=== PATIENT | female | born 1995 | race Hispanic/Latino ===

== ENCOUNTER 2021-10-15 08:58 | Outpatient (CLI) | payer BC, OTHER | END 2021-10-15 08:59 | disposition home or self-care (01) | LOC: CSHLAB 08:58 | PROVIDERS: ATTEND Obstetrics & Gynecology | DX: Z20.822 Contact with and (suspected) exposure to COVID-19 (principal) | CPT/HCPCS: 87811 ==

== ENCOUNTER 2021-10-19 05:30 | Inpatient (IN) | payer BC, OTHER ==
[2021-10-19 05:56] VITALS: BMI 32.5
[2021-10-19] MEDS ORDERED: hydrALAZINE 20 MG/ML VIAL SLOW IVP PRN ×2 (06:32→20:14)
[2021-10-19] MEDS ORDERED: Ondansetron PF 4 MG/2 ML Vial IVP PRN ×2 (06:32→20:14)
[2021-10-19] MEDS ORDERED: Misoprostol 200 MCG TAB PR PRN (06:32)
[2021-10-19] MEDS ORDERED: Butorphanol Tartrate 1 MG/ML VIAL SLOW IVP PRN (06:32)
[2021-10-19] MEDS ORDERED: Promethazine HCl 25 MG/ML VIAL IM PRN ×2 (06:32→20:14)
[2021-10-19] MEDS ORDERED: Carboprost 250 MCG/ML AMP IM PRN (06:32)
[2021-10-19] MEDS ORDERED: Methylergonovine 0.2 MG/ML VIAL IM PRN ×2 (06:32→20:14)
[2021-10-19] MEDS ORDERED: Lidocaine 1% (PF) 30 ML VIAL SC PRN (06:32)
[2021-10-19] MEDS ORDERED: HYDROcodone/Acetaminophen 5/325 mg Tablet PO PRN (06:32)
[2021-10-19] MEDS ORDERED: Ibuprofen 800 MG TAB PO PRN (06:32)
[2021-10-19] MEDS ORDERED: Diphenoxylate HCl/Atropine Tablet PO PRN ×2 (06:32)
[2021-10-19] MEDS ORDERED: Acetaminophen 500 MG TAB PO PRN (06:32)
[2021-10-19] MEDS ORDERED: NS w/ Oxytocin 30 units 500 ML IV SCH ×3 (06:45→20:14)
[2021-10-19] MEDS ORDERED: Penicillin G Potassium 5 MILL.UNITS in Sodium Chloride 0.9% 100 ML IVPB SCH (06:45)
[2021-10-19 06:56] LABS: Hemoglobin 11.2 g/dL (12.0-15.5); Mean Corpuscular HGB CONC 33.2 g/dL (32.0-36.0); Mean Corpuscular Hemoglobin 27.8 pg (27.0-33.0); Mean Corpuscular Volume 83.6 fl (81.6-98.3); Mean Platelet Volume 11.3 fl (7.4-10.4); Platelet Count 174 10x3/uL (150-450); RBC Distribution Width 15.1 % (11.5-14.5); Red Blood Cell (RBC) Count 4.03 10x6/uL (3.90-5.03); White Blood Cell (WBC) Count 6.6 10x3/uL (3.5-10.5)
[2021-10-19] MEDS: Lactated Ringer's 1,000 ML IV SCH ×2 (07:03→18:26)
[2021-10-19 07:49] LABS: Hep B Surf Ag Non-Reactive S/CO (NonReactive); Syphilis Antibody Nonreactive (Nonreactive); Syphilis Antibody Index 0.04 S/CO (<1.00 Non-Reactive)
[2021-10-19 08:16] LABS: HBSAg Index 0.26 S/CO (0-0.99)
[2021-10-19] MEDS: Penicillin G 2.5 MILL.units 2.5 MILL.UNITS in Premix Bag 1 BAG IVPB SCH ×4 (11:12→21:48)
[2021-10-19] MEDS ORDERED: Milk Of Magnesia 30 ML UDCUP PO PRN (20:14)
[2021-10-19] MEDS ORDERED: Measles/Mumps/Rubella 10 MCG/0.5 ML VIAL SC ONE (20:14)
[2021-10-19] MEDS ORDERED: Preparation H Ointment 28 GM TUBE PR PRN (20:14)
[2021-10-19] MEDS ORDERED: Zolpidem Tartrate 5 MG TAB PO PRN (20:14)
[2021-10-19] MEDS ORDERED: Bisacodyl 10 MG SUPP PR PRN (20:14)
[2021-10-19] MEDS ORDERED: Misoprostol 200 MCG TAB VAG PRN (20:14)
[2021-10-19] MEDS ORDERED: Varicella virus, LIVE 0.5 ML VIAL SC ONE (20:14)
[2021-10-19] MEDS ORDERED: diphenhydrAMINE 25 MG CAP PO PRN (20:14)
[2021-10-19] MEDS ORDERED: Lanolin Ointment 7 GM TUBE TOP PRN (20:14)
[2021-10-19] MEDS ORDERED: Benzocaine-Menthol 82.5 ML CAN TOP PRN (20:14)
[2021-10-19] MEDS ORDERED: Boostrix 0.5 ML (Tdap) VIAL IM ONE (20:14)
[2021-10-19] MEDS: Ibuprofen 800 MG TAB PO SCH (20:50)
[2021-10-19] MEDS: Docusate 100 MG CAP PO SCH (20:50)
[2021-10-19] MEDS: HYDROcodone/Acetaminophen 5/325 mg Tablet PO PRN (21:52)
[2021-10-20 04:27] LABS: Hemoglobin 9.6 g/dL (12.0-15.5); Mean Corpuscular Hemoglobin 27.8 pg (27.0-33.0); Mean Corpuscular Volume 81.7 fl (81.6-98.3); Platelet Count 148 10x3/uL (150-450); RBC Distribution Width 14.6 % (11.5-14.5); Red Blood Cell (RBC) Count 3.45 10x6/uL (3.90-5.03); White Blood Cell (WBC) Count 9.8 10x3/uL (3.5-10.5)
[2021-10-20] MEDS: Ibuprofen 800 MG TAB PO SCH ×3 (05:08→21:14)
[2021-10-20] MEDS: Ferrous Sulfate 325 MG TAB PO SCH ×2 (09:07→15:31)
[2021-10-20] MEDS: Prenatal Vitamin 1 TAB PO SCH (09:07)
[2021-10-20] MEDS: Docusate 100 MG CAP PO SCH ×2 (09:07→21:14)
[2021-10-20] MEDS: HYDROcodone/Acetaminophen 5/325 mg Tablet PO PRN ×2 (09:10→15:31)
[2021-10-21] MEDS: Ibuprofen 800 MG TAB PO SCH (05:23)
[2021-10-21 07:53] VITALS: TEMP 98
[2021-10-21] MEDS: Ferrous Sulfate 325 MG TAB PO SCH (09:28)
[2021-10-21] MEDS: Docusate 100 MG CAP PO SCH (09:28)
[2021-10-21] MEDS: Prenatal Vitamin 1 TAB PO SCH (09:28)
[2021-10-21 11:41] VITALS: BP 113/64
== END 2021-10-21 13:05 | disposition home or self-care (01) | DRG 807 ==
LOC: CSHLD 05:35 → CSHPP 18:20
PROVIDERS: ADMIT Obstetrics & Gynecology; ATTEND Obstetrics & Gynecology
PROC: 10E0XZZ Delivery of Products of Conception, External Approach (ICD-10-PCS; principal; 2021-10-19)
DX: O70.0 First degree perineal laceration during delivery (principal); Z37.0 Single live birth; Z3A.39 39 weeks gestation of pregnancy
CPT/HCPCS: 36415; 85027; 86780; 86850; 86900; 86901; 87340; J2001; J2540; J2590; J3490; J7120

== ENCOUNTER 2023-03-09 14:39 | Day surgery (SDC) | payer BC, OTHER ==
[2023-03-09 15:08] VITALS: BMI 29.8
[2023-03-09] MEDS ORDERED: hydrALAZINE 20 MG/ML VIAL SLOW IVP PRN (15:14)
[2023-03-09 15:58] LABS: Fetal Membranes Rupture No Membranes Rupture (No Rupture)
[2023-03-09 16:37] LABS: Amphetamine Not Detected (NotDetected); Barbiturates Screen Not Detected (NotDetected); Benzodiazepine Screen Not Detected (NotDetected); Cocaine Metabolite Screen Not Detected (NotDetected); Methadone Not Detected (NotDetected); Methamphetamine Not Detected (NotDetected); Opiate Screen Not Detected (NotDetected); Oxycodone Screen Not Detected (NotDetected); Phencyclidine (PCP) Not Detected (NotDetected); THC/Cannabinoid Screen Not Detected (NotDetected); Tricyclic Screen Not Detected (NotDetected)
== END 2023-03-09 16:50 | disposition home or self-care (01) ==
LOC: CSHLD/OP 14:39
PROVIDERS: ATTEND Obstetrics & Gynecology
DX: O47.1 False labor at or after 37 completed weeks of gestation (principal); O98.513 Other viral diseases complicating pregnancy, third trimester; B00.9 Herpesviral infection, unspecified; Z3A.38 38 weeks gestation of pregnancy; Z79.899 Other long term (current) drug therapy
CPT/HCPCS: 80306; 84112

== ENCOUNTER 2023-03-19 19:47 | Inpatient (IN) | payer BC, MEDICAID ==
[2023-03-19 20:21] VITALS: BMI 31.5
[2023-03-19] MEDS ORDERED: Carboprost 250 MCG/ML AMP IM PRN (22:11)
[2023-03-19] MEDS ORDERED: Ondansetron PF 4 MG/2 ML Vial IVP PRN (22:11)
[2023-03-19] MEDS ORDERED: hydrALAZINE 20 MG/ML VIAL SLOW IVP PRN ×2 (22:11)
[2023-03-19] MEDS ORDERED: Misoprostol 200 MCG TAB PR PRN (22:11)
[2023-03-19] MEDS ORDERED: Diphenoxylate HCl/Atropine Tablet PO PRN (22:11)
[2023-03-19] MEDS ORDERED: Methylergonovine 0.2 MG/ML VIAL IM PRN (22:11)
[2023-03-19] MEDS ORDERED: Tranexamic Acid 1,000 MG/10 ML VIAL IVP PRN (22:11)
[2023-03-19] MEDS ORDERED: Acetaminophen 500 MG TAB PO PRN (22:11)
[2023-03-19] MEDS ORDERED: fentaNYL 50 mcg/mL 1 mL Vial SLOW IVP PRN (22:11)
[2023-03-19] MEDS ORDERED: Promethazine HCl 25 MG/ML VIAL IM PRN (22:11)
[2023-03-19] MEDS ORDERED: Oxytocin 30 units/NS 500 ML 500 ML IV SCH ×2 (22:15→22:45)
[2023-03-19] MEDS ORDERED: Lidocaine 1% (PF) 30 ML VIAL SC PRN (22:34)
[2023-03-19] MEDS ORDERED: Ibuprofen 800 MG TAB PO PRN (22:34)
[2023-03-19] MEDS ORDERED: Penicillin G Potassium 5 MILL.UNITS VIAL ONE (22:35)
[2023-03-19] MEDS ORDERED: Penicillin G Potassium 5 MILL.UNITS in Sodium Chloride 0.9% 100 ML IVPB SCH (22:45)
[2023-03-19 22:52] LABS: Hematocrit 36.4 % (34.9-44.5); Hemoglobin 11.8 g/dL (12.0-15.5); Mean Corpuscular HGB CONC 32.4 g/dL (32.0-36.0); Mean Corpuscular Hemoglobin 27.1 pg (27.0-33.0); Mean Corpuscular Volume 83.7 fl (81.6-98.3); Mean Platelet Volume 11.5 fl (7.4-10.4); Platelet Count 223 10x3/uL (150-450); RBC Distribution Width 13.3 % (11.5-14.5); Red Blood Cell (RBC) Count 4.35 10x6/uL (3.90-5.03); White Blood Cell (WBC) Count 10.2 10x3/uL (3.5-10.5)
[2023-03-19] MEDS ORDERED: Lactated Ringer's 1,000 ML IV SCH (23:00)
[2023-03-19 23:10] LABS: ALT (SGPT) 12 U/L (8-55); AST (SGOT) 23 U/L (5-34); Albumin 3.6 g/dL (3.5-5.0); Alkaline Phosphatase 187 U/L (40-110); Anion Gap 17 mmol/L (10-20); BUN (Urea Nitrogen) 5 mg/dL (7.0-18.7); Bilirubin, Total 0.4 mg/dL (0.2-1.2); Calc. Creatinine Clearance 160 mL/min (70-130); Calcium 9.3 mg/dL (7.8-10.44); Carbon Dioxide 19 mmol/L (22-29); Chloride 103 mmol/L (98-107); Estimated GFR 125; Globulin 4.3 g/dL (2.4-3.5); Glucose 76 mg/dL (70-105); Potassium 4.1 mmol/L (3.5-5.1); Protein, Total 7.9 g/dL (6.0-8.3); Sodium 135 mmol/L (136-145)
[2023-03-19 23:11] LABS: Amphetamine Not Detected (NotDetected); Barbiturates Screen Not Detected (NotDetected); Benzodiazepine Screen Not Detected (NotDetected); Cocaine Metabolite Screen Not Detected (NotDetected); Methadone Not Detected (NotDetected); Methamphetamine Not Detected (NotDetected); Opiate Screen Not Detected (NotDetected); Oxycodone Screen Not Detected (NotDetected); Phencyclidine (PCP) Not Detected (NotDetected); THC/Cannabinoid Screen Not Detected (NotDetected); Tricyclic Screen Not Detected (NotDetected)
[2023-03-19 23:25] LABS: HBSAg Index 0.27 S/CO (0-0.99); Hep B Surf Ag - L&D Non-Reactive S/CO (NonReactive)
[2023-03-19 23:27] LABS: Syphilis Antibody Nonreactive (Nonreactive); Syphilis Antibody Index 0.08 S/CO (<1.00 Non-Reactive)
[2023-03-19 23:28] LABS: HIV (1/2) Antibody/Antigen Non-Reactive (NonReactive)
[2023-03-20] MEDS ORDERED: Carboprost 250 MCG/ML AMP ONE (00:12)
[2023-03-20] MEDS ORDERED: Methylergonovine 0.2 MG/ML VIAL ONE (00:12)
[2023-03-20] MEDS ORDERED: Misoprostol 200 MCG TAB ONE (00:13)
[2023-03-20] MEDS ORDERED: Oxytocin 30 units/NS 500 ML 500 ML ONE (00:16)
[2023-03-20] MEDS ORDERED: Lidocaine 1% PF 10 ML AMP ONE (00:18)
[2023-03-20] MEDS ORDERED: Lidocaine 1% (PF) 30 ML VIAL ONE (00:20)
[2023-03-20] MEDS ORDERED: Bisacodyl 10 MG SUPP PR PRN (00:43)
[2023-03-20] MEDS ORDERED: Boostrix 0.5 ML (Tdap) VIAL (>/=7 yrs of age) IM ONE (00:43)
[2023-03-20] MEDS ORDERED: Milk Of Magnesia 30 ML UDCUP PO PRN (00:43)
[2023-03-20] MEDS ORDERED: Penicillin G 2.5 MILL.units 2.5 MILL.UNITS in Premix 1 BAG IVPB SCH (03:00)
[2023-03-20] MEDS: Acetaminophen 325 MG TAB PO SCH ×4 (03:02→20:07)
[2023-03-20] MEDS ORDERED: HYDROcodone/Acetaminophen 5/325 mg Tablet PO SCH (04:30)
[2023-03-20] MEDS: Ibuprofen 800 MG TAB PO SCH ×2 (08:31→16:28)
[2023-03-20] MEDS: Docusate 100 MG CAP PO SCH ×2 (08:32→20:07)
[2023-03-20] MEDS ORDERED: Benzocaine-Menthol 82.5 ML CAN TOP PRN (08:56)
[2023-03-20 12:55] LABS: Hep C IgG Ab Non-Reactive S/CO (NonReactive); Hep C Index 0.14 S/CO (0-0.79)
[2023-03-21] MEDS: Ibuprofen 800 MG TAB PO SCH ×2 (01:00→13:10)
[2023-03-21] MEDS: Acetaminophen 325 MG TAB PO SCH ×2 (01:01→13:10)
[2023-03-21 12:06] VITALS: BP 125/65; TEMP 98
[2023-03-21] MEDS: Docusate 100 MG CAP PO SCH (13:10)
== END 2023-03-21 12:50 | disposition home or self-care (01) | DRG 807 ==
LOC: CSHLD/OP 19:47 → CSHLD 22:28 → CSHPP 03-20 02:40
PROVIDERS: ADMIT Obstetrics & Gynecology; ATTEND Obstetrics & Gynecology
PROC: 10E0XZZ Delivery of Products of Conception, External Approach (ICD-10-PCS; principal; 2023-03-20)
DX: O80 Encounter for full-term uncomplicated delivery (principal); Z37.0 Single live birth; Z3A.39 39 weeks gestation of pregnancy
CPT/HCPCS: 80053; 80306; 85027; 86762; 86780; 86803; 86850; 86900; 86901; 87340; 87389; 99285; J2540; J2590; J7120